=== PATIENT | female | born 1985 | race Caucasian/White ===

== ENCOUNTER 2017-11-29 10:52 | Emergency (ER) | payer OTHER ==
[2017-11-29 12:12] LABS: ADD MAN DIFF? NO
[2017-11-29 12:18] LABS: WHITE BLOOD COUNT 5.6 10^3/ul (4.8-10.8)
[2017-11-29 12:18] LABS: BASOPHIL # 0.1 10^3/ul (0.0-0.1); BASOPHILS % 1.1 % (0.0-2.0); EOSINOPHILS # 0.1 10^3/ul (0.0-0.5); EOSINOPHILS % 1.2 % (0.0-7.0); HEMATOCRIT 40.1 % (37.0-47.0); HEMOGLOBIN 12.9 g/dl (12.0-16.0); LYMPHOCYTES % 34.8 % (15.0-51.0); MEAN CORPUSCULAR HEMOGLOBIN 29.1 pg (29.0-33.0); MEAN CORPUSCULAR HGB CONC 32.2 g/dl (32.0-37.0); MEAN CORPUSCULAR VOLUME 90.5 fl (82.0-101.0); MEAN PLATELET VOLUME 10.2 fl (7.4-10.4); MONOCYTE # 0.5 10^3/ul (0.3-0.9); PLATELET COUNT 259 10^3/UL (140-415); RED BLOOD COUNT 4.43 10^6/ul (4.20-5.40); RED CELL DISTRIBUTION WIDTH 12.4 % (11.5-14.5)
[2017-11-29 16:15] LABS: FREE T4 (FREE THYROXINE) 1.45 ng/dl (0.79-2.35)
[2017-12-01 14:57] LABS: FOLLICLE STIMULATING HORMONE 7.5 mIU/mL; LUTEINIZING HORMONE 11.8 mIU/mL
== END 2017-11-29 13:28 | disposition home or self-care (01) ==
LOC: FTE 10:52
DX: D25.9 Leiomyoma of uterus, unspecified (principal); Z85.850 Personal history of malignant neoplasm of thyroid
CPT/HCPCS: 76830; 76856; 81025; 83001; 83002; 84146; 84439; 84443; 84703; 85025; 99284-25